=== PATIENT | female | born 1990 | race Caucasian/White ===

== ENCOUNTER 2024-03-24 02:46 | Inpatient (IN) ==
[2024-03-24] MEDS ORDERED: LIDOCAINE 1% LOCAL 20 ML VIAL INFIL PRN (02:59)
--- NOTE | 2024-03-24 03:04 | History & Physical Report ---
Date of Service March 24, 2024 Assessment & Plan (1) Uterine contractions: Plan Admit in active labor History of Present Illness Chief Complaint: labor Primary Care Provider: Renita Tamayo PA-C 33 F P1001 at term here in active labor. GBS is negative. Allergies Allergy/AdvReac Type Severity Reaction Status Date / Time amoxicillin Allergy Intermediate RASH A Verified 03/04/24 15:31 CHILD prednisone Allergy Mild Rash Verified 03/04/24 15:31 Home Medications Medication Instructions Recorded Confirmed Type bupropion HCl 100 mg tablet,12 hr 100 mg PO DAILY 02/25/24 03/24/24 History sustained-release vits no.124-ferrous fum 1 tab PO DAILY 03/04/24 03/24/24 History 27 mg iron-folic acid 800 mcg tablet ( Vitamin) Patient History Medical History (Updated 03/24/24 @ 03:09 by Zain Parra MD) Anxiety History of supraventricular tachycardia Ablation [facility] [place]- 08/2021. Depression Surgical History [place] teeth extracted H/O cardiac radiofrequency ablation 08/2021 Family History Grandfather (Maternal) Myocardial infarction Grandmother (Maternal) Uterine cancer Bladder cancer Denies family history of Ovarian cancer Prostate cancer Breast cancer Colorectal cancer Social History Smoking Status: Never smoker Second Hand Exposure: Yes; Do You Dip or Chew Tobacco: No; Preferred Language: [place] Visual Impairment: No Limitations Hearing Ability: Normal Apartment Hotel Manager Required: No Beliefs That Will Affect Care: None Current Living Situation: Significant Other and Other Current Living Situation Comment: almost 3 yo daughter and significant other current occupational status: employed current occupation: planning manager How many Children do You have: 1 Diet: regular Diet Comment: regular caffeine: Yes during the past year weight has: decreased > 10 lbs Dental Care, Regularly: Yes Physical Activity Frequency: Daily Seatbelt Use: always Sunscreen Use: Yes Assistive Devices: Contacts OB History x1 ENERGY ATTORNEY History neg Review of Systems All systems reviewed & are unremarkable except as noted in HPI & below Physical Exam Constitutional: WD/WN, vitals as above Eyes: PERRL, conjunctivae normal, anicteric sclerae Respiratory: normal respiratory effort, lungs clear to auscultation Cardiovascular: Rate/Rhythm: regular rate and regular rhythm Gastrointestinal (Abdomen): Inspection/Auscultation: abdomen normal to inspection Musculoskeletal: Extremities: extremities normal to inspection Skin: no rashes, warm and dry Neurologic: patellar DTR's 2+ bilat, sensation intact Psychiatric: A+Ox3, euthymic affect Results & Data Vital Signs (Past 12 Hours) Vital Signs Pulse BP 03/24/24 02:57 93 H 130/88 Code Status & VTE Plan VTE Prophylaxis Plan VTE Prophylaxis will be ordered: No Monitoring External Monitor Cat 1
[2024-03-24] MEDS: LACTATED RINGER'S 1,000 ML IV PRN (03:05)
[2024-03-24 03:27] LABS: Hematocrit (blood only) 33.8 % (37.0-47.0); Hemoglobin 11.5 g/dl (12.0-16.0); Mean Corpuscular Volume 85.4 fL (80.0-100.0); Mean Platelet Volume 11.2 fL (9.4-12.4); Platelet Count 209 K/uL (130-400); RDW Coefficient of Variation 14.5 % (11.5-14.5); RDW Standard Deviation 44.7 fL (36.4-46.3); Red Blood Count 3.96 M/uL (4.20-5.40); White Blood Count 11.89 K/ul (4.8-10.8)
[2024-03-24] MEDS ORDERED: LIDOCAINE 2% MPF LOCAL 5 ML VIAL EPI PRN (03:30)
[2024-03-24] MEDS ORDERED: NALOXONE HCL 0.4 MG/1 ML VIAL/CARP IV PRN (03:30)
[2024-03-24] MEDS ORDERED: SODIUM CHLORIDE 0.9% PF INJ 10 ML VIAL EPI PRN (03:30)
[2024-03-24] MEDS ORDERED: diphenhydrAMINE 50 MG/ML VIAL IV PRN (03:30)
[2024-03-24] MEDS ORDERED: ePHEDrine sulfate 50 MG/ML AMP IV PRN (03:30)
[2024-03-24] MEDS ORDERED: ROPIVACAINE 0.5% PF 5 MG/ML 20 ML VIAL EPI PRN (03:30)
[2024-03-24] MEDS ORDERED: BUPIVACAINE 0.25% PF 30 ML VIAL EPI PRN (03:30)
[2024-03-24] MEDS ORDERED: NALBUPHINE HCL 5 MG in SYRINGE 0 ML IV PRN (03:30)
[2024-03-24] MEDS ORDERED: NALOXONE HCL 1 MG in SODIUM CHLORIDE 0.9% 1,000 ML IV PRN (03:30)
[2024-03-24] MEDS ORDERED: fentaNYL citrate PF 100 MCG/2 ML VIAL EPI PRN (03:30)
--- NOTE | 2024-03-24 03:30 | Anesthesiology Consultation ---
Date of Service March 24, 2024 Assessment & Plan Chart Review Chart Review: Acceptable Risk for Labor Epidural Consults Requested none History Height/Weight Height: 5 ft 7 in Weight: 89.3 kg Allergies Allergy/AdvReac Type Severity Reaction Status Date / Time amoxicillin Allergy Intermediate RASH A Verified 03/04/24 15:31 CHILD prednisone Allergy Mild Rash Verified 03/04/24 15:31 Medications Home Medications Medication Instructions Recorded Confirmed Last Taken bupropion HCl 100 mg tablet,12 hr 100 mg PO DAILY 02/25/24 03/24/24 3 Days Ago sustained-release ~03/21/24 vits no.124-ferrous fum 1 tab PO DAILY 03/04/24 03/24/24 1 Day Ago 27 mg iron-folic acid 800 mcg ~03/23/24 tablet ( Vitamin) Active Medications Generic Name Dose Route Start Last Admin Trade Name Freq PRN Reason Stop Dose Admin Lactated Ringer's 1,000 mls @ 125 mls/hr 03/24/24 02:59 03/24/24 03:05 Lr IV 03/26/24 02:58 999 mls/hr .Q8H PRN Administration L&D Protocol Protocol Past Medical History Medical History (Updated 03/24/24 @ 03:09 by Zain Parra MD) Anxiety History of supraventricular tachycardia Ablation [facility] [place]- 08/2021. Depression Past Family History Family History Grandfather (Maternal) Myocardial infarction Grandmother (Maternal) Uterine cancer Bladder cancer Denies family history of Ovarian cancer Prostate cancer Breast cancer Colorectal cancer Past Surgical History Surgical History [place] teeth extracted H/O cardiac radiofrequency ablation 08/2021 Social History Smoking Status: Never smoker Do You Dip or Chew Tobacco: No Hx Alcohol Use: No Hx Substance Use: No substance use type: does not use Physical Exam Vital Signs Last Vital Signs Temp 36.7 C 03/24/24 03:08 Pulse 93 H 03/24/24 02:57 Resp 16 03/24/24 03:08 BP 130/88 03/24/24 02:57 Constitutional WD/WN, vitals as above Eyes PERRL, conjunctivae normal, anicteric sclerae Respiratory normal respiratory effort, lungs clear to auscultation Cardiovascular Rate/Rhythm: regular rate and regular rhythm Gastrointestinal (Abdomen) Inspection/Auscultation: abdomen normal to inspection Musculoskeletal Extremities: extremities normal to inspection Skin no rashes, warm and dry Neurologic patellar DTR's 2+ bilat, sensation intact Psychiatric A+Ox3, euthymic affect Testing Laboratory Results 03/24/24 03:14
[2024-03-24] MEDS: LIDOCAINE 2%/EPINEPHRINE 1:200,000 20 ML PF ONE (03:44)
[2024-03-24] MEDS: fentANYL 2 MCG/ML BUPIVacaine 0.125%-NSS 100ML BAG EPI PRN (03:44)
[2024-03-24] MEDS: BUPIVACAINE 0.25% PF 30 ML VIAL EPI STA (04:50)
[2024-03-24] MEDS: fentaNYL citrate PF 100 MCG/2 ML VIAL EPI STA (04:50)
[2024-03-24] MEDS: SODIUM CHLORIDE 0.9% PF INJ 10 ML VIAL EPI STA (04:51)
[2024-03-24] MEDS: fentANYL 2 MCG/ML BUPIVacaine 0.125%-NSS 100ML BAG ONE (04:51)
[2024-03-24] MEDS: ePHEDrine sulfate 50 MG/ML AMP ONE (04:51)
[2024-03-24] MEDS: SODIUM CHLORIDE 0.9% PF INJ 10 ML VIAL ONE (04:51)
[2024-03-24] MEDS: BUPIVACAINE 0.25% PF 30 ML VIAL ONE (04:51)
[2024-03-24] MEDS: LIDOCAINE 2%/EPINEPHRINE 1:200,000 20 ML PF EPI STA (04:52)
[2024-03-24] MEDS: ONDANSETRON INJ 2 MG/ML 2 ML VIAL IV PRN (04:54)
[2024-03-24] MEDS: CALCIUM CARBONATE 500 MG CHEWABLE TAB PO PRN (05:19)
--- NOTE | 2024-03-24 05:35 | Labor Progress Brief Note ---
Date of Service March 24, 2024 Assessment & Plan Admission and Anticipated Discharge Date Admission Date: March 24, 2024 Physical Exam Genitourinary: Manual OB Exam: + cervical dilation 10 cm, + cervical effacement 100%, + station 0 and + amniotic fluid clear OB Exam Monitor Tracing: + external FHT monitor used, + external uterine monitor used, + category I and + normal FHT variability AROM with Amni-hook clear fluid Results & Data Vital Signs (Past 12 Hours) Vital Signs Temp Pulse Resp BP Pulse Ox 03/24/24 05:30 93 H 99 03/24/24 05:25 87 98 03/24/24 05:22 75 102/54 L 03/24/24 05:20 76 98 03/24/24 05:15 80 98 03/24/24 05:10 81 96 03/24/24 05:08 75 94/50 L 03/24/24 05:05 83 98 03/24/24 05:00 77 16 97 03/24/24 04:55 106 H 100 03/24/24 04:53 105 H 102/58 L 03/24/24 04:50 121 H 99 03/24/24 04:45 85 97 03/24/24 04:40 94 H 98 03/24/24 04:37 71 108/73 03/24/24 04:35 92 H 96 03/24/24 04:32 85 94/66 L 03/24/24 04:30 96 H 16 98 03/24/24 04:26 96 H 104/59 L 03/24/24 04:25 105 H 99 03/24/24 04:22 97 H 115/68 03/24/24 04:20 101 H 98 03/24/24 04:17 96 H 111/66 03/24/24 04:15 92 H 98 03/24/24 04:12 93 H 121/77 03/24/24 04:10 96 H 97 03/24/24 04:06 93 H 104/51 L 03/24/24 04:05 87 98 03/24/24 04:00 16 03/24/24 04:00 16 03/24/24 04:00 99 03/24/24 04:00 81 03/24/24 04:00 91 H 117/66 03/24/24 03:58 96 H 114/69 03/24/24 03:56 89 110/60 03/24/24 03:55 86 16 97 03/24/24 03:54 81 110/61 03/24/24 03:52 88 111/71 03/24/24 03:50 80 98 03/24/24 03:49 113 H 108/78 03/24/24 03:45 91 H 98 03/24/24 03:40 80 98 03/24/24 03:08 36.7 C 16 03/24/24 02:57 93 H 130/88
[2024-03-24] MEDS: OXYTOCIN 30 UNITS/NSS 30 UNITS/500 ML BAG IV PRN (06:00)
--- NOTE | 2024-03-24 06:16 | Delivery Summary ---
Vaginal Delivery Summary Date of Service March 24, 2024 Vaginal Delivery Summary live female KOLBY with delayed cord clamping and Apgars 8/8 weight pending. Cord blood obtained followed by spontaneous delivery of intact placenta. Small tear in vagina noted in midline about 3-4 mm. not bleeding and not repaired. QBL 206 ml. Final sponge and instrument count are correct. Mom and baby stable.
[2024-03-24] MEDS ORDERED: BENZOCAINE 20% SPRY 85 APPLN/85 GM CAN EXT PRN (06:18)
[2024-03-24] MEDS ORDERED: HYDROCORTISONE ACETATE 25 MG SUPP PR PRN (06:18)
[2024-03-24] MEDS ORDERED: OXYTOCIN 30 UNITS/NSS 30 UNITS/500 ML BAG IV PRN (06:18)
[2024-03-24] MEDS ORDERED: bisacodyL 10 MG SUPP PR PRN (06:18)
[2024-03-24] MEDS: DOCUSATE SODIUM 100 MG CAP PO SCH (08:25)
[2024-03-24] MEDS: PRENATAL VITAMIN 1 TAB PO SCH (08:25)
[2024-03-24] MEDS: buPROPion SR 100 MG TABCR PO SCH (08:26)
[2024-03-24] MEDS: FERROUS SULFATE 325 MG TAB PO SCH (08:26)
--- NOTE | 2024-03-24 08:43 | Anesthesia Procedure Note ---
Date of Service March 24, 2024 Anesthesia Post Epidural Note Vital Signs Vital Signs: Temp Pulse Resp BP Pulse Ox 36.8 C 90 18 106/66 97 03/24/24 06:20 03/24/24 08:28 03/24/24 07:05 03/24/24 08:28 03/24/24 06:05 Pain Intensity Abdomen: Pain Intensity: 0 Notes Mental Status: alert / awake / arousable and participated in evaluation Nausea / Vomiting: adequately controlled Pain: adequately controlled Airway Patency, RR, SpO2: stable & adequate BP & HR: stable & adequate Hydration State: stable & adequate Neuraxial Anesthesia: was administered and sensory block is resolving Anesthetic Complications: no major complications apparent Epidural: Removed without complications and With tip intact
[2024-03-24] MEDS ORDERED: PRENATAL VITAMIN 1 TAB PO SCH (09:00)
[2024-03-24] MEDS: IBUPROFEN 600 MG TAB PO PRN (09:19)
[2024-03-24] MEDS: ACETAMINOPHEN 325 MG TAB PO PRN (10:07)
[2024-03-24] MEDS: DIPHTHER/TETAN/PERTUS Vaccine (Tdap, Adol/Adult) 0.5mL IM ONE (10:35)
--- OUTSIDE RECORDS SUMMARY | 2024-03-24 12:04 | External Medical Summary | Summary of Care ---
Author Name Unknown Organization [facility] Address [address] [place] [address] Phone [phone] Care Team Providers Care Jd Edwards Developer Name Role Phone Shiloh Leger Primary Care Provider [phone] Encounter Details Date Type Department Care Team (Late st Contact Info) Description 03/17/2024 [facility] [address] [place] [address] Adia Baig CRNP [address] [facility] [place] [address] Allergies Active Allergy Reactions Criticality Noted Date Comments Amoxicillin 12/05/2005 Prednisone 10/01/2022 Other reaction(s): hives documented as of this encounter (statuses as of 03/17/2024) Medications Medication Sig Dispensed Refills Start Date End Date Status Forte Oral Tablet Take by mouth. Active buPROPion HCl ER (XL) 150 MG Oral Tablet Extended Release 24 Hour (Wellbutrin XL)Indications:Encount er for supervision of other normal in first trimester,Depression complicating , antepartum Take 1 Tablet by mouth in the morning. 30 Tablet 6 08/06/2023 Active Fish Oil 1000 MG Oral Capsule Take 1 Capsule by mouth in the morning. Active Ondansetron HCl 4 MG Oral Tablet (Zofran) 03/04/2024 Acti ve Polyethylene Glycol 3350 17 GM Oral Packet (MiraLax) Take 1 Packet by mouth in the morning. Active documented as of this encounter (statuses as of 03/17/2024) Active Problems Problem Noted Date Diagnosed Date Iron deficiency anemia 01/21/2024 Antepartum anemia complicating 024 Overview: Anemia at 28w, recommend IV iron High grade squamous intraepi thelial lesion (HGSIL), grade 3 ROGERIO, on biopsy of cervix 10/13/2023 Overview: Needs PP LEEP Maternal arrhythmia affecting , antepar blaise 09/29/2023 Overview: Hx SVT, s/p ablation in 2021. Follows with cardiology at [facility]. Reports she had an echo ~2 years ago and it was normal. Has had one short episode of SVT since ablation, but no issues since that time. Sees cardiology in November. Last Assessment & Plan: She presents for a anatomy survey. She has a history of SVT s/p ablation not requiring pharmacologic treatment and depression managed with Wellbutrin. She reports no recent episodes of SVT. She is not feeling well with some cold- like symptoms and has noted a higher baseline heart rate (mild tachycardia) in association with this over the last 2 days, but denies feeling otherwise symptomatic from a cardiac perspective. Labs reviewed: -- cffDNA low risk for aneuploidy -- msAFP low risk for ONTD We reviewed the results of today's ultrasound. The estimated weight is appropriate for gestational age. The visualized anatomy is unremarkable in appearance. The amniotic fluid amount appears normal. We discussed that ultrasound is not able to identify all anomalies, but it is reassuring that no anomalies were seen today. 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 States Solano was tested and he is not a carrier. She has previously received counseling. No labs available for review. Last Assessment & Plan: Discussion: -Spinal Muscular Atrophy (SMA) is an autosomal recessive neuromuscular disease characterized by degeneration of motor neurons, resulting in progressive muscular atrophy (wasting away) and weakness. The clinical spectrum of SMA ranges from early infant to normal adult life with only mild weakness. Recommendations: -Discussed 50% chance the gene is passed on to her . -Not at risk for development as she reports her partner is negative. Pap smear of cervix with ASCUS, cannot exclude H GSIL 08/13/2023 Encounter for supervision of other normal , unspecified trimester 08/06/2023 History of cardiac radiofrequency ablation 08/06 Overview: Cardiac ablation after last for persistent SVT. Depression complicating , antepartum Overview: Taking wellbutrin, mood stable. Denies SI/HI. Last Assessment & Plan: DISCUSSION: 1. Discussed with patient that depression can and should be treated during when the benefits of treatment outweigh potential risks. Risks of leaving maternal depression untreated or inadequately treated are maternal suicide/homicide, an increased risk of depression/psychosis, relapse during and impaired maternal-child bonding. Risks of untreated mental illness pose additional risks in , such as miscarriage, low weight, and delivery. 2. Discussed that although there have been reports in the past regarding anti-depressant therapy and abnormalities or complications, research has not confirmed or supported this claim. Studies of first-trimester SSRI exposure do not demonstrate consistent data to support an increased risk for structural malformations, however, echocardiogram is indicated at this time for patients who were treated with paroxetine (Paxil) in the first trimester. 3. Anti-depressants have been associated with transient effects (withdrawal syndrome). RECOMMENDATIONS: 1. Women who are stable from a psychiatric standpoint may be able to stay on their medication after consultation between their mental health provider and their obstetric provider. However, for most women, accessible and acceptable mental health treatment may be very limited. 2. Women who would like to discontinue their medication may attempt medication tapering and discontinuation under the direction of their prescribing physician. 3. Women who have recurrent depression or who have depression despite medication may benefit from psychotherapy to replace or augment medication. 4. Women with severe depression should continue their medication. 5. Alternative treatments such as light therapy, acupuncture treatment and omega-3 fatty acids may be tried if the patient desires. Wellbutrin - Not associated with increased risk of congenital defects. Antidepressant use (not specific to Wellbutrin) in may cause temporary symptoms in newborns after delivery such as irritability, trouble sleeping/eating, however these symptoms resolve on their own and do not require treatment. 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 No issues since ablation and was discah Estimated Date of Delivery Comme nts Yes 03/28/2024 Based on Ultraso und documented as of this encounter (statuses as of 03/17/2024) Immunizations Name Administration Dates Next Due COVID-19, LNP-s, No Preserve , Jose Miguel-sucrose, Ages 12+ (Pfizer) 05/15/2021,04/23/2021 TDAP (age 10 and older)(Boostrix) 01/02/2024 documented as of this encounter Social History Tobacco Use Types Packs/Day Years Used Date Smoking Tobacco: Never Smokeless Tobacco: Never Alcohol Use Standard Drinks/Week Comments Not Currently 0 (1 standard drink = 0.6 oz pur e alcohol) very rare PHQ-2 Answer Date Recorded PHQ Adult Total Score 0 10/01/2022 Hunger Vital Sign Answer Date Recorded Within the past 12 months, y ou worried that your food would run out before you got the money to buy more. Never true 11/03/19 24 Within the past 12 months, t he food you bought just didn't last and you didn't have money to get more. Never true 11/03/2023 [place] Depression Scale Answer Date Recorded [place] Depression Scale Total 4 02/04/2024 The thought of harming myself has occurred to me . Never 02/04/2024 Childcare Answer Date Recorded Do you feel overwhelmed with taking care of a child, family member or friend? No 11/03/2023 Does your family need help f inding childcare? (Household - for ages 0-17 years) Not on file 11/03/2023 Clothing Answer Date Recorded Have you been unable to get clothing when it was really needed? No 11/03/2023 Is your family able to get c lothes or diapers when needed? (Household - for ages 0-17 years) Not on file 11/03/2023 Personal Safety Answer Date Recorded Do you feel unsafe or have concerns for your saf ety? No 11/03/2023 Do you have concerns for you r family's safety? (Household - for ages 0-17 years) Not on file 11/03/2023 Utilities Answer Date Recorded Do you have trouble paying y our heating, water, or electric bill? No 11/03/2023 Is your family able to pay t he heat, water, or electric bill? (Household - for ages 0-17 years) Not on file 11/03/2023 Does your family have access to good internet? (Household - for ages 0-17 years) Not on file 11/03/2023 Employment Status Answer Date Recorded Are you unemployed or without regular income? No 11/03/2023 Does the household have a [facility] source of income? (Household - for ages 0-17 years) Not on file 11/03/2023 Social Connections Answer Date Recorded How often do you feel lonely or isolated from th ose around you? Never 11/03/2023 Financial Resource Strain Answer Date R ecorded Do you have any trouble payi ng for your medications, or do you think you might in the future? No 11/03/2023 Does your family have troubl e paying for medicine? (Household - for ages 0-17 years) Not on file 11/03/2023 Transportation Needs Answer Date Record ed READ ONLY Do you have troubl e getting a ride to medical visits or work? Never True 11/03/2023 Does your family have a hard time getting a ride to doctors visits? (Household - for ages 0-17 years) Not on file 11/03/2023 Has lack of transportation k ept you from medical appointments, meetings, work, or from getting things needed for daily living? Check all that apply. (Adult - for ages 18 years and over) Not on file 11/03/2023 Do you (or your family) have trouble finding or paying for a ride (transportation)? (Household - for ages 0-17 years) Not on file 11/03/2023 Housing Stability Answer Date Recorded Do you currently live in a s helter or have no steady place to sleep at night? No 11/03/2023 READ ONLY Do you think you a re at risk of becoming homeless? No 11/03/2023 Does your family worry about paying for your home or becoming homeless? (Household - for ages 0-17 years) Not on file 0 11/03/2023 Are you homeless or worried that you might be in the future? (Adult - for ages 18 years and over) Not on file Are you (or your family) xi eless or worried that you might be in the future? (Household - for ages 0-17 years) Not on file Food Insecurity Answer Date Recorded Do you need food for this week? No 11/03/2023 Are you able to get enough f ood for your family? (Household - for ages 0-17 years) Not on file 11/03/2023 Does your family need food t his week? (Household - for ages 0-17 years) Not on file 11/03/2023 Do you always have enough fo od for your family? (Household - for ages 0-17 years) Not on file 11/03/2023 Estimated Date of Delivery Comme nts Yes 03/28/2024 Based on Ultraso und Sex and Gender Information Value Date Recorded Sex Assigned at Female 10/01/2022 8:56 AM EST Gender Identity Female 10/01/2022 8:56 AM EST Sexual Orientation Straight 10/01/2022 8: 56 AM EST Job Start Date Occupation Industry Not on file Not on file Not on file documented as of this encounter Miscellaneous Notes * Telephone Encounter - Radha Ritter LPN - 03/17/2024 9:09 AM EDT Pt had dental abscess pop last night. Was feeling ill for the past week and thinks maybe related. Dentist has no appts and told her to reach out to OB for management. I advised pt to reach out first to PCP and then urgent care if pcp can't help as our providers don't treat dental infections. documented in this encounter Plan of Treatment Upcoming Encounters Date Type Department Care Team (Late st Contact Info) Description 03/17/2024 3:00 PM EDT Office Visit Gynecology/Obstetrics [facility] [address] [place] [id number] Adia Baig CRNP [address] [place] [id number] 03/26/2024 3:30 PM EDT [facility] [address] [place] [address] Karolyn Rodriguez PA-C [address] [place] [address] [place] [id number] Health Maintenance Due Date Last Done Comments Hepatitis B Vaccine (1 of 3 - 19+ 3-dose series) 2010 COVID-19 Vaccine (2022- season) 2023 05/15/2021, 05/15/2021, 04/23/2021, Additional history exists Depression Monitoring 10/01/2023 10/01/2022 Influenza Vaccine (FLU shot) (#1) 2024 Pap Smear 08/06/2026 08/06/2023 Cervical Cancer Screening 08/06/2028 HPV/Co-Test 08/06/2028 08/06/2023 DTaP,Tdap,and Td Vaccines (2 - Td or Tdap) 01/01/2034 01/02/2024 HPV (Gardasil) Vaccine Aged Out No lo nger eligible based on patient's age to complete this topic MENINGOCOCCAL (MENACTRA/MENVEO) Aged Out No longer eligible based on patient's age to complete this topic Pneumococcal Vaccine: Pediatrics (0 to 5 Years) and At-Risk Patients (6 to 64 Years) Aged Out No longer eligible based on patient's age to complete this topic documented as of this encounter Medical Devices Not on filedocumented as of this encounter Care Teams Jd Edwards Developer Relationship Specialty Start Date End Date Shiloh Leger CRNP [address] [place] [address] PCP - General Nurse Practitioner 09/24/22 documented as of this encounter
--- OUTSIDE RECORDS SUMMARY | 2024-03-24 12:04 | External Medical Summary | Summary of Care ---
Author Name Unknown Organization [facility] Address [address] [place] [address] Phone [phone] Care Team Providers Care Charge Aide Name Role Phone Shiloh Leger Primary Care Provider +1- [phone] Reason for Visit * Reason Comments Return Visit Encounter Details Date Type Department Care Team (Latest Contact Info) Description 03/17/2024 3:00 PM EDT Office Visit Gynecology/Obstetri sharyn Han [address] [place] [address] Adia Baig CRNP [address] [place] [address] Encounter for supervision of other normal , unspecified trimester*; History of cardiac radiofrequency ablation; Depression complicating , antepartum; Pap smear of cervix with ASCUS, cannot exclude HGSIL; Maternal arrhythmia affecting , antepartum; Carrier of spinal muscular atrophy; High grade squamous intraepithelial lesion (HGSIL), grade 3 ROGERIO, on biopsy of cervix; Antepartum anemia complicating Allergies Active Allergy Reactions Criticality Noted Date [...] ablation in 2021. Follows with cardiology at [facility]. 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 States Russ was tested and he is not a [...] money to get more. Never true 11/03/2023 [place] Depression Scale Answer Date Recorded [place] Depression Scale Total 4 02/04/2024 The thought [...] No 11/03/2023 Does the household have a re gular source of income? (Household - for ages [...] on file documented as of this encounter Last Filed Vital Signs Vital Sign Reading Time Taken Comments Blood Pressure 110/78 03/17/2024 2:56 PM EDT Pulse - - Temperature - - Respiratory Rate - - Oxygen Saturation - - Inhaled Oxygen Concentration - - Weight 83.8 kg (184 lb 12.8 oz) 03/17/2024 2:56 PM EDT Height - - Body Mass Index 29.83 03/12/2024 3:10 PM EDT documented in this encounter Progress Notes * Adia Baig CRNP - 03/17/2024 3:16 PM EDT 38w3d Abscess on tooth popped last night. Not sure if she needs antibiotics. Advised this will not be managed by this office, as not related to . She is vomiting in the middle of the night. Suggested she try Pepcid in the evening to see if this improves this. Baby is active. Still with contractions, no bleeding. Asking for cervical check today. Wants membrane sweep next week, hoping to avoid IOL. Production Control Pegboard Clerk Documentation Provider requested retort loader. Name of retort loader: EM Sharp documented in this encounter Nursing Notes * Socorro Kan MED ASSIST - 03/17/2024 2:54 PM EDT 38w3d Abscess on front tooth popped at 4:00am. Throwing up every night 3 weeks. Feeling feverish. Requesting cervical check ?membrane sweep documented in this encounter Plan of Treatment Upcoming Encounters Date Type Department Care Team (Late st Contact Info) Description 03/26/2024 3:30 PM EDT Office Visit Gynecology/Obstetrics [facility] 132 [facility] [place] [address] Karolyn Rodriguez PA-C [address] [place] [address] [place] [address] Health Maintenance Due Date Last Done Comments Hepatitis B Vaccine (1 of 3 - 19+ 3-dose series) 2010 COVID-19 Vaccine (2022-24 season) 2023 05/15/2021, 05/15/2021, 04/23/2021, Additional history [...] Not on filedocumented as of this encounter Visit Diagnoses Diagnosis Encounter for supervision of other normal , unspecified trimester- Primary History of cardiac radiofrequency ablation Depression complicating , antepartum Mental disorders of mother, antepartum Pap smear of cervix with ASCUS, cannot exclude HGSIL Papanicolaou smear of cervix with atypical squamous cells of undetermined significance (ASC-US) Maternal arrhythmia affecting , antepartum Carrier of spinal muscular atrophy High grade squamous intraepithelial lesion (HGSIL), grade 3 ROGERIO, on biopsy of cervix Antepartum anemia complicating Anemia, antepartum documented in this encounter Care Teams Charge Aide Relationship Specialty Start Date End Date Shiloh Leger CRNP [address] [facility] [place] [address] PCP - General Nurse Practitioner 09/24/22 documented as of this encounter
--- OUTSIDE RECORDS SUMMARY | 2024-03-24 12:04 | External Medical Summary | Summary of Care ---
Author Name Unknown Organization [facility] Address [address] [facility] [address] Phone [phone] Care Team Providers Care Agriculture Intern Name Role Phone Shiloh Leger Primary Care Provider +1- [phone] Reason for Visit * Reason Comments Return Visit Encounter Details Date Type Department Care Team (Latest Contact Info) Description 03/22/2024 1:00 PM EDT Office Visit Gynecology/Obstetri sharyn Han [address] [place] [address] Gayle Dexter PA-C [address] [place] [address] Encounter for supervision of other normal , unspecified trimester*; History of cardiac radiofrequency ablation; Depression complicating , antepartum; Pap smear of cervix with ASCUS, cannot exclude HGSIL; Maternal arrhythmia affecting , antepartum; Carrier of spinal muscular atrophy; High grade squamous intraepithelial lesion (HGSIL), grade 3 ROGREIO, on biopsy of cervix; Antepartum anemia complicating Allergies Active Allergy Reactions Criticality Noted Date Comments Amoxicillin 12/05/2005 Prednisone 10/01/2022 Other reaction(s): hives documented as of this encounter (statuses as of 03/22/2024) Medications Medication Sig Dispensed Refills Start Date End Date Status Forte Oral Tablet Take by mouth. Active buPROPion HCl ER (XL) 150 MG Oral Tablet Extended Release 24 Hour (Wellbutrin XL)Indications:Encou nter for supervision of other normal in first [...] Packet by mouth in the morning. Active Clindamycin HCl 300 MG Oral Capsule Take 1 Capsule by mouth in the morning and 1 Capsule at noon and 1 Capsule before bedtime. Do all this for 7 days. 21 Capsule 03/18/2024 03/25/2024 Active documented as of this encounter (statuses as of 03/22/2024) Active Problems Problem Noted Date Diagnosed Date Iron deficiency anemia 01/21/2024 Antepartum anemia complicating 024 Overview: Anemia at 28w, recommend IV iron High grade squamous intraepi thelial lesion (HGSIL), grade 3 ROGERIO, on biopsy of cervix 10/13/2023 Overview: Needs PP LEEP Maternal arrhythmia affecting , antepar blaise 09/29/2023 Overview: Hx SVT, s/p ablation in 2021. Follows with cardiology at [facility]. Reports she had an echo ~2 [...] clinical spectrum of SMA ranges from early to normal adult life with only mild [...] as of this encounter (statuses as of 03/22/2024) Immunizations Name Administration Dates Next Due COVID-19, [...] money to get more. Never true 11/03/2023 [place] Depression Scale Answer Date Recorded [place] Depression Scale Total 4 02/04/2024 The thought [...] Sign Reading Time Taken Comments Blood Pressure 118/84 03/22/2024 12:49 PM EDT Pulse - - Temperature - - Respiratory Rate - - Oxygen Saturation - - Inhaled Oxygen Concentration - - Weight 83.9 kg (185 lb) 03/22/2024 12:49 PM EDT Height 167.6 cm (5' 6") 03/22/2024 12:49 PM EDT Body Mass Index 29.86 03/22/2024 12:49 PM EDT documented in this encounter Progress Notes * Gayle Dexter PA-C - 03/22/2024 1:12 PM EDT 39w1d No complaints. Requesting membrane sweep, had 3 times with last . GBS negative. Reports intermittent contractions. Denies LOF, VB. Baby active. FKC appropriate, pt reports 10 kicks in 2 hours. Business Unit Director Documentation Provider requested sheriffs detective. Name of sheriffs detective: HALEY Garcia Asking for return appointment later this week for another membrane sweep -- discussed may be limited based on available appointments. Reviewed postdate IOL, pt agreeable to scheduled. Prefers [id number]. RTC in 1 week Gayle Dexter PA-C documented in this encounter Nursing Notes * Radha Ritter LPN - 03/22/2024 12:59 PM EDT 39w1d Would like membrane sweep. documented in this encounter Plan of Treatment Upcoming Encounters Date Type Department Care Team (Late st Contact Info) Description 03/26/2024 3:30 PM EDT Office Visit Gynecology/Obstetrics [facility] 132 [facility] [place] [address] Karolyn Rodriguez PA-C [address] [place] [address] [place] [address] Health Maintenance Due Date Last Done Comments Hepatitis B Vaccine (1 of 3 - 19+ 3-dose series) 2010 COVID-19 Vaccine (3 - 2022-24 season) 2023 05/15/2021, 05/15/2021, 04/23/2021, Additional history [...] antepartum documented in this encounter Care Teams Agriculture Intern Relationship Specialty Start Date End Date Shiloh Leger CRNP [address] [place] [address] PCP - General Nurse Practitioner 09/24/22 documented as of this encounter
--- OUTSIDE RECORDS SUMMARY | 2024-03-24 12:04 | External Medical Summary | Summary of Care ---
Author Name Unknown Organization [facility] Address [address] [facility] [address] Phone [phone] Care Team Providers Care Crop Adjuster Name Role Phone Shiloh Leger Primary Care Provider +1- [phone] Encounter Details Date Type Department Care Team (Late st Contact Info) Description 03/22/2024 Telephone [facility] [address] [place] [address] Gayle Dexter PA-C [address] [place] [address] Allergies Active Allergy Reactions Criticality Noted Date [...] ablation in 2021. Follows with cardiology at [facility]. Reports she had an echo ~2 years [...] money to get more. Never true 11/03/2023 [place] Depression Scale Answer Date Recorded [place] Depression Scale Total 4 02/04/2024 The thought [...] 11/03/2023 Does the household have a re lar source of income? (Household - for ages [...] on file documented as of this encounter Plan of Treatment Upcoming Encounters Date Type Department Care Team (Late st Contact Info) Description 03/26/2024 3:30 PM EDT Office Visit Gynecology/Obstetrics [facility] 132 [facility] [place] [address] Karolyn Rodriguez PA-C [address] [place] [address] [place] [address] Health Maintenance Due Date Last Done Comments [...] filedocumented as of this encounter Care Teams Crop Adjuster Relationship Specialty Start Date End Date Shiloh Leger CRNP [address] [place] [address] PCP - General Nurse Practitioner 09/24/22 documented as of this encounter
--- OUTSIDE RECORDS SUMMARY | 2024-03-24 12:04 | External Medical Summary | Summary of Care ---
Author Name Unknown Organization [facility] Address [address] [facility] [address] Phone [phone] Care Team Providers Care Industrial Waste Treatment Technician Name Role Phone Shiloh Leger Primary Care Provider +1- [phone] Reason for Visit * Reason Comments Return Visit Encounter Details Date Type Department Care Team (Latest Contact Info) Description 03/22/2024 1:00 PM EDT Office Visit Gynecology/Obstetri sharyn Han [address] [place] [address] Gayle Dexter PA-C [address] [place] [address] Encounter for supervision of other normal , [...] money to get more. Never true 11/03/2023 [place] Depression Scale Answer Date Recorded [place] Depression Scale Total 4 02/04/2024 The thought [...] pt reports 10 kicks in 2 hours. Document Preparation Specialist Documentation Provider requested program arranger. Name of program arranger: HALEY Garcia Asking for return appointment later this week for another membrane sweep -- discussed may be limited based on available appointments. Reviewed postdate IOL, pt agreeable to scheduled. Prefers [id number]. RTC in 1 week Gayle Dexter PA-C documented in this encounter Nursing Notes * Radha Ritter LPN - 03/22/2024 12:59 PM EDT 39w1d Would like membrane sweep. documented in this encounter Plan of Treatment Upcoming Encounters Date Type Department Care Team (Late st Contact Info) Description 03/26/2024 3:30 PM EDT Office Visit Gynecology/Obstetrics [facility] 132 [facility] [place] [address] Karolyn Rodriguez PA-C [address] [place] [address] [place] [address] Health Maintenance Due Date [...] antepartum documented in this encounter Care Teams Industrial Waste Treatment Technician Relationship Specialty Start Date End Date Shiloh Leger CRNP [address] [place] [address] PCP - General Nurse Practitioner 09/24/22 documented as of this encounter
--- OUTSIDE RECORDS SUMMARY | 2024-03-24 12:05 | External Medical Summary | Summary of Care ---
Author Name Unknown Organization [facility] Address [address] [facility] [place] [address] Phone [phone] Care Team Providers Care Emergency Department Clinician Name Role Phone Shiloh Leger Primary Care Provider +1- [phone] Reason for Visit * Reason Comments Return Visit Encounter Details Date Type Department Care Team (Late st Contact Info) Description 03/12/2024 3:30 PM EDT Office Visit Gynecology/Obstetri [facility] 132 [facility] [place] [address] Karolyn Rodriguez PA-C [address] [place] [address] Encounter for supervision of other normal , unspecified trimester*; Antepartum anemia complicating ; Iron deficiency anemia, unspecified iron deficiency anemia type; History of cardiac radiofrequency ablation; Maternal arrhythmia affecting , antepartum; High grade squamous intraepithelial lesion (HGSIL), grade 3 ROGERIO, on biopsy of cervix; Depression complicating , antepartum; Carrier of spinal muscular atrophy; Vaginal discharge during in third trimester Allergies Active Allergy Reactions Criticality Noted Date Comments Amoxicillin 12/05/2005 Prednisone 10/01/2022 Other reaction(s): hives documented as of this encounter (statuses as of 03/15/2024) Medications Medication Sig Dispensed Refills Start Date [...] as of this encounter (statuses as of 03/15/2024) Active Problems Problem Noted Date Diagnosed Date Iron deficiency anemia 01/21/2024 Antepartum anemia complicating 024 Overview: Anemia at 28w, recommend IV iron High grade squamous intraepi thelial lesion (HGSIL), grade 3 ROGERIO, on biopsy of cervix 10/13/2023 Overview: Needs PP LEEP Maternal arrhythmia affecting , antepar blaise 09/29/2023 Overview: Hx SVT, s/p ablation in 2021. Follows with cardiology at [facility]. Reports she had an echo ~2 [...] as of this encounter (statuses as of 03/15/2024) Immunizations Name Administration Dates Next Due COVID-19, [...] money to get more. Never true 11/03/2023 [place] Depression Scale Answer Date Recorded [place] Depression Scale Total 4 02/04/2024 The thought [...] Sign Reading Time Taken Comments Blood Pressure 110/82 03/12/2024 3:10 PM EDT Pulse - - Temperature - - Respiratory Rate - - Oxygen Saturation - - Inhaled Oxygen Concentration - - Weight 83.9 kg (185 lb) 03/12/2024 3:10 PM EDT Height 167.6 cm (5' 6") 03/12/2024 3:10 PM EDT Body Mass Index 29.86 03/12/2024 3:10 PM EDT documented in this encounter Progress Notes * Karolyn Rodriguez PA-C - 03/12/2024 3:36 PM EDT Thelma Cooper is a 33 year old female here for her routine OB appointment at 37w5d Her Estimated Date of Delivery: 03/28/24 2 days ago and yesterday noted gushing of fluid that soaked her underwear. She has also had some intermittent BH contractions that have not been timeable or regular. She has been experiencing continued nausea and vomiting. Has been using Zofran which helps. REVIEW OF SYSTEMS She affirms movement. Denies vaginal bleeding, contractions, chest pain, RUQ pain. PHYSICAL EXAM Filed Vitals: 03/12/24 1510 BP: 110/82 Weight: 83.9 kg (185 lb) Height: 1.676 m (5' 6") +FHT 160s-170s. Patient actively may during auscultation with doppler. Remains low 160s. Put on NST for further monitoring for tachycardia. Fundal height 38 cm Nitrazine negative. No pooling. CE: 3cm/40%/-2 Medical Anthropologist Documentation Patient offered radiology aide and accepted. Name of radiology aide: Radha Jones LPN. ASSESSMENT assessment with Non-stress Test completed on 03/12/2024 at 37w5d weeks gestation for indicationof tachycardia heart baseline: 140 bpm Variability: Moderate Decelerations: absent. Accelerations: present Contractions: None NST start time: 1552 NST stop time: 1629 NST strip reviewed, interpreted, and approved by OB provider, Karolyn Rodriguez PA-C. NST strip stored in clinic storage file Reviewed strip with on-call provider Dr. Yeager. Per Dr. Yeager, NST is reactive and patient is able to safely D/C to home with strict precautions. To call with regular contractions every 4-5 minutes for an hour, increasing in frequency or intensity. ASSESSMENT/PLAN Encounter for supervision of other normal , unspecified trimester (Primary) Antepartum anemia complicating Iron deficiency anemia, unspecified iron deficiency anemia type History of cardiac radiofrequency ablation Maternal arrhythmia affecting , antepartum High grade squamous intraepithelial lesion (HGSIL), grade 3 ROGERIO, on biopsy of cervix Depression complicating , antepartum Carrier of spinal muscular atrophy Vaginal discharge during in third trimester - VAGINOSIS PANEL, PCR; Future; Expected date: 03/12/2024 Supervision of - strict labor precautions and kick counts reviewed. Gave L&D phone numbers. RTO in 1 week Karolyn Rodriguez PA-C 03/12/2024 documented in this encounter Nursing Notes * Radha Ritter LPN - 03/12/2024 3:18 PM EDT 37w5d ?LOF x 2. Swelling. documented in this encounter Miscellaneous Notes * Result Encounter Note - Karolyn Rodriguez PA-C - 03/15/2024 7:58 AM EDT Please inform patient her recent vaginosis culture was negative for infection. No treatment is indicated at this time. Thanks! Karolyn Rodriguez PA-C documented in this encounter Plan of Treatment Upcoming Encounters Date Type Department Care Team (Late st Contact Info) Description 03/15/2024 9:30 AM EDT Pharmacy Pharmacy, [place] [address] [place] [address] Clinic, Anemia [address] [place] [address] 03/17/2024 3:00 PM EDT Office Visit Gynecology/Obstetrics [address] [place] [address] Adia Baig CRNP [address] [place] [address] 03/26/2024 3:30 PM EDT Office Visit Gynecology/Obstetrics Iris Han [address] [place] [address] Karolyn Rodriguez PA-C [address] [place], [place] [address] [address] Health Maintenance Due Date Last Done Comments [...] Not on filedocumented as of this encounter Procedures Procedure Name Priority Date/Time Associated Diagnosis Comments VAGINOSIS PANEL, PCR Routine 03/12/2024 4:07 PM EDT Vaginal discharge during in third trimester documented in this encounter Results * VAGINOSIS PANEL, PCR (03/12/2024 4:07 PM EDT) Bacterial Vaginosis Result Negative Negative 03/13/2024 12:07 PM EDT [facility] Comment:Negative for Bacteri al Vaginosis. Correlate results with other clinical findings. Yadira species Result Negative Negative 03/13/2024 12:07 PM EDT [facility] Comment:No Yadira species g roup RNA detected. Correlate results with other clinical findings. Yadira glabrata Result Negative Negative 03/13/2024 12:07 PM EDT [facility] Comment:No Yadira glabrata RNA detected. Correlate results with other clinical findings. Trichomonas Result Negative Negative 03/13/2024 12:07 PM EDT [facility] Comment:No Trichomonas vagin az[place] RNA detected. Swab Specimen from wound / Unknown 03/12/2024 4:07 PM EDT 03/12/2024 4:07 PM EDT Karolyn Rodriguez PA-C LAB MICRO - GENERAL ORDERABLES LABORATORY [facility] [address] [place] [address] documented in this encounter Visit Diagnoses Diagnosis Encounter for supervision of other normal , unspecified trimester- Primary Antepartum anemia complicating Anemia, antepartum Iron deficiency anemia, unspecified iron deficiency anemia type History of cardiac radiofrequency ablation Maternal arrhythmia affecting , antepartum High grade squamous intraepithelial lesion (HGSIL), grade 3 ROGERIO, on biopsy of cervix Depression complicating , antepartum Mental disorders of mother, antepartum Carrier of spinal muscular atrophy Vaginal discharge during in third trimester documented in this encounter Care Teams Emergency Department Clinician Relationship Specialty Start Date End Date Shiloh Leger CRNP [address] [facility] [place] [address] PCP - General Nurse Practitioner 09/24/22 documented as of this encounter
--- OUTSIDE RECORDS SUMMARY | 2024-03-24 12:05 | External Medical Summary | Summary of Care ---
Author Name Unknown Organization [facility] Address [address] [place] [address] Phone [phone] Care Team Providers Care Survey Research Analyst Name Role Phone Shiloh Leger Primary Care Provider +1- [phone] Encounter Details Date Type Department Care Team (Late st Contact Info) Description 03/04/2024 Result Scan Unspecified Department <No scans attached> Allergies Active Allergy Reactions Criticality Noted Date Comments Amoxicillin 12/05/2005 Prednisone 10/01/2022 Other reaction(s): hives documented as of this encounter (statuses as of 03/08/2024) Medications Medication Sig Dispensed Refills Start Date [...] Capsule by mouth in the morning. Active documented as of this encounter (statuses as of 03/08/2024) Active Problems Problem Noted Date Diagnosed Date [...] as of this encounter (statuses as of 03/08/2024) Immunizations Name Administration Dates Next Due COVID-19, [...] money to get more. Never true 11/03/2023 [place] Depression Scale Answer Date Recorded [place] Depression Scale Total 4 02/04/2024 The thought [...] Team (Late st Contact Info) Description 03/12/2024 3:00 PM EDT Laboratory Laboratory, [facility] [address] [place] [id number] [facility] [address] [place] [address] 03/12/2024 3:30 PM EDT [facility] [address] [address] Karolyn Rodriguez PA-C [address] [place] [address] [place] [address] 03/15/2024 9:30 AM EDT Pharmacy Pharmacy, [place] [address] [facility] [address] [facility] [address] [place] [address] 03/19/2024 2:45 PM EDT Office Visit Gynecology/Obstetrics [facility] [address] [facility] [place] [address] Adia Baig CRNP [address] [place] [address] 03/26/2024 3:30 PM EDT Office Visit Gynecology/Obstetrics [facility] [address] [place] [address] Karolyn Rodriguez PA-C [address] [facility] [place] [address] Health Maintenance Due Date [...] Procedure Name Priority Date/Time Associated Diagnosis Comments OUTSIDE LAB RESULTS 03/04/2024 documented in this encounter Results * OUTSIDE LAB RESULTS (03/04/2024) 03/04/2024 No Physician Data Unknown LABORATORY documented in this encounter Care Teams Survey Research Analyst Relationship Specialty Start Date End Date Shiloh Leger CRNP [address] [place] [address] PCP - General Nurse Practitioner 09/24/22 documented as of this encounter
--- OUTSIDE RECORDS SUMMARY | 2024-03-24 12:05 | External Medical Summary ---
Author Name Unknown Address Unknown Organization K01:[facility] - [address] [place] [address] Laboratory Report Ordering Provider Test Date Status TAZ CLEMENS 03/12/2024 15:05:45 Final Observation Date Value Abnormality Reference (Units ) Status Ferritin 03/12/2024 15:05:45 217 Above high normal 13 -150 (ng/mL) Final Performing Location [facility] - [address] [place] [address]
--- OUTSIDE RECORDS SUMMARY | 2024-03-24 12:05 | External Medical Summary | Summary of Care ---
Author Name Unknown Organization [facility] Address [address] [place] [address] Phone [phone] Care Team Providers Care Mathematics Teacher Name Role Phone Shiloh Leger Primary Care Provider +1- [phone] Reason for Visit * Reason Comments IV Therapy Infed Encounter Details Date Type Department Care Team (Latest Contact Info) Description 02/12/2024 8:00 AM EDT Hem/Onc Treatment Hematology/Oncology Treatment, [address] [address] Jacy, Chair 1 Hem Onc [address] [id number] Iron deficiency anemia, unspecified iron deficiency anemia type* Allergies Active Allergy Reactions Criticality Noted Date Comments Amoxicillin 12/05/2005 Prednisone 10/01/2022 Other reaction(s): hives documented as of this encounter (statuses as of 03/10/2024) Medications Medication Sig Dispensed Refills Start Date [...] as of this encounter (statuses as of 03/10/2024) Active Problems Problem Noted Date Diagnosed Date Iron deficiency anemia 01/21/2024 Antepartum anemia complicating 024 Overview: Anemia at 28w, recommend IV iron High grade squamous intraepi thelial lesion (HGSIL), grade 3 ROGERIO, on biopsy of cervix 10/13/2023 Overview: Needs PP LEEP Maternal arrhythmia affecting , antepar blaise 09/29/2023 Overview: Hx SVT, s/p ablation in 2021. Follows with cardiology at [facility]. Reports she had an echo ~2 [...] as of this encounter (statuses as of 03/10/2024) Immunizations Name Administration Dates Next Due COVID-19, [...] money to get more. Never true 11/03/2023 Jber Depression Scale Answer Date Recorded Jber Depression Scale Total 4 02/04/2024 The thought [...] Sign Reading Time Taken Comments Blood Pressure 105/68 02/12/2024 10:30 AM EDT Pulse 86 02/12/2024 10:30 AM EDT Temperature 36.8 C (98.2 F) 02/12/2024 9:25 AM ED T Respiratory Rate 16 02/12/2024 9:25 AM EDT Oxygen Saturation 96% 02/12/2024 9:25 AM EDT Inhaled Oxygen Concentration - - Weight - - Height - - Body Mass Index - - documented in this encounter Nursing Notes * Sintia Mays, RN - 02/12/2024 11:30 AM EDT Pt completed treatment without issues. IV removed. Goals: pt will remain free from injury. Possible barriers to meeting goals: risk of reaction, ambulation with IV pole Stability of the patient: Moderately stable - low risk of patient condition declining or worsening Summary regarding today's goals: Met: Pt Pt remained free from injury during treatment today. Discharged in stable condition. * Sintia Mays RN - 02/12/2024 8:35 AM EDT Chair 8, Infed. Pt has no acute concerns to report today. Reviewed medication and infusion process with pt; pt verbalized understanding. PIV established; NSS infusing. Call goodwin within reach. Safety and Risk for Injury Patient will remain free from injury. Ensure appropriate safety devices are available. Provide and maintain safe environment. documented in this encounter Plan of Treatment Upcoming Encounters Date Type Department Care Team (Late st Contact Info) Description 03/12/2024 3:00 PM EDT Laboratory Laboratory, [facility] [address] [facility] [place] [address] [facility] [place] [address] 03/12/2024 3:30 PM EDT Office Visit Gynecology/Obstetrics [facility] [address] [place] [address] Karolyn Rodriguez PA-C [address] [place], [place] [address] [address] 03/15/2024 9:30 AM EDT Pharmacy Pharmacy, [place] [address] [place] [address] Clinic, [place] [address] [place] [address] 03/19/2024 2:45 PM EDT [facility] [address] [place] [address] Adia Baig CRNP [address] [place] [address] 03/26/2024 3:30 PM EDT Office Visit Gynecology/Obstetrics [facility] [place] [address] [place] [address] Karolyn Rodriguez PA-C [address] [place] [address] [place] [address] Scheduled Orders Name Type Priority Associated Diagnoses Orde r Schedule IRON SCREEN, INCLUDING TIBC Lab STAT Iron deficiency anemia, unspecified iron deficiency anemia type Expected: 02/12/2024 (Approximate), Expires: 08/10/2024 CBC WITH WBC DIFFERENTIAL Lab STAT Iron deficiency anemia, unspecified iron deficiency anemia type Expected: 02/12/2024 (Approximate), Expires: 08/10/2024 FERRITIN Lab STAT Iron deficiency anemia, unspecified iron deficiency anemia type Expected: 02/12/2024 (Approximate), Expires: 02/11/2025 Health Maintenance Due Date Last Done Comments [...] as of this encounter Visit Diagnoses Diagnosis Iron deficiency anemia, unspecified iron deficiency anemia type- Primary documented in this encounter Administered Medications Inactive Administered Medications - up to 3 most recent administrations Medication Order MAR Action Action Date Dose Rate Site Iron Dextran (Infed) 975 mg in NSS 250 mL INFUSION 975 mg, IV Piggyback, ONCE, 1 dose, On Carrie 02/12/24 at 0945, Administer over 1 Hours, - Administer iron dextran infusion bag (over 1 hour) - Monitor for infusion reaction with vitals and observe for reactions at 30 minutes and 60 minutes - If patient develops sign/symptoms of reaction or vital signs outside normal limits: 1) STOP infusion 2) CONTACT physician Start Infusion 02/12/2024 9:33 AM EDT 975 mg 274.5 mL/hr Iron Dextran (Infed) IV Push TEST DOSE 25 mg IV Push, Administer over 0.5 Minutes, Educate patient on sign/symptoms of infusion reaction -Administer 25 mg test dose of iron dextran before infusion bag -Observe patient for sign/symptoms of reaction with vitals sign before test dose and 15 minutes after -If patient tolerates test dose with no reaction, proceed with iron dextran infusion -HOLD infusion and contact physician immediately if patient reacts to test dose, ONCE, 1 dose, On Carrie 02/12/24 at 0930 Given 02/12/2024 8:24 AM EDT 25 mg NSS infusion Intravenous, at 50 mL/hr, PRN, Starting on Carrie 02/12/24 at 0930, Until Carrie 02/12/24 at 1532, Maintenance line Start Infusion 02/12/2024 8:22 AM EDT 50 mL/hr documented in this encounter Care Teams Mathematics Teacher Relationship Specialty Start Date End Date Shiloh Leger CRNP [address] [place] [address] PCP - General Nurse Practitioner 09/24/22 documented as of this encounter
--- OUTSIDE RECORDS SUMMARY | 2024-03-24 12:05 | External Medical Summary | Summary of Care ---
Author Name Unknown Organization [facility] Address [address] [place] [address] Phone [phone] Care Team Providers Care Land Manager Name Role Phone Shiloh Leger Primary Care Provider +1- [phone] Reason for Visit * Reason Comments Outpatient Testing Encounter Details Date Type Department Care Team (Late st Contact Info) Description 03/12/2024 3:00 PM EDT Laboratory Laboratory, [facility] [address] [place] [id number] [facility] [address] [place] [address] Iron deficiency anemia, unspecified iron deficiency anemia type Allergies Active Allergy Reactions Criticality Noted Date Comments Amoxicillin 12/05/2005 Prednisone 10/01/2022 Other reaction(s): hives documented as of this encounter (statuses as of 03/12/2024) Medications Medication Sig Dispensed Refills Start Date [...] as of this encounter (statuses as of 03/12/2024) Active Problems Problem Noted Date Diagnosed Date Iron deficiency anemia 01/21/2024 Antepartum anemia complicating 024 Overview: Anemia at 28w, recommend IV iron High grade squamous intraepi thelial lesion (HGSIL), grade 3 ROGERIO, on biopsy of cervix 10/13/2023 Overview: Needs PP LEEP Maternal arrhythmia affecting , antepar blaise 09/29/2023 Overview: Hx SVT, s/p ablation in 2021. Follows with cardiology at [facility]. Reports she had an echo [...] as of this encounter (statuses as of 03/12/2024) Immunizations Name Administration Dates Next Due COVID-19, [...] money to get more. Never true 11/03/2023 [place] Depression Scale Answer Date Recorded [place] Depression Scale Total 4 02/04/2024 The thought [...] 03/12/2024 3:30 PM EDT Office Visit Gynecology/Obstetri [facility] [address] [facility] [place] [address] Karolyn Rodriguez PA-C [address] [place] [address] [place] [address] Encounter for supervision of other normal , unspecified trimester*; Antepartum anemia complicating ; Iron deficiency anemia, unspecified iron deficiency anemia type; History of cardiac radiofrequency ablation; Maternal arrhythmia affecting , antepartum; High grade squamous intraepithelial lesion (HGSIL), grade 3 ROGERIO, on biopsy of cervix; Depression complicating , antepartum; Pap smear of cervix with ASCUS, cannot exclude HGSIL; Carrier of spinal muscular atrophy 03/15/2024 9:30 AM EDT Pharmacy Pharmacy, [place] [address] [place] [address] Clinic, [place] [address] [place] [address] 03/19/2024 2:45 PM EDT Office Visit Gynecology/[facility] [address] [facility] [address] Adia Baig CRNP [address] [facility] [address] 03/26/2024 3:30 PM EDT Office Visit Gynecology/Obstetri [facility] [address] [facility] [address] Karolyn Rodriguez PA-C [address] [place] [address] Pending Results Name Type Priority Associated Diagnoses Date /Time IRON SCREEN, INCLUDING TIBC Lab Routine Iron deficiency anemia, unspecified iron deficiency anemia type 03/12/2024 3:05 PM EDT FERRITIN Lab Routine Iron deficiency anemia, unspecified iron deficiency anemia type 03/12/2024 3:05 PM EDT RETICULOCYTE PANEL Lab Routine Iron deficiency anemia, unspecified iron deficiency anemia type 03/12/2024 3:05 PM EDT VITAMIN B12 Lab Routine Iron deficiency anemia, unspecified iron deficiency anemia type 03/12/2024 3:05 PM EDT FOLIC ACID Lab Routine Iron deficiency anemia, unspecified iron deficiency anemia type 03/12/2024 3:05 PM EDT Health Maintenance Due Date Last Done Comments [...] Procedure Name Priority Date/Time Associated Diagnosis Comments DIFFERENTIAL, AUTOMATED Routine 03/12/2024 3:05 PM EDT Iron deficiency anemia, unspecified iron deficiency anemia type CBC Routine 03/12/2024 3:05 PM EDT Iron deficiency anemia, unspecified iron deficiency anemia type CBC Routine 03/12/2024 3:05 PM EDT Iron deficiency anemia, unspecified iron deficiency anemia type documented in this encounter Results * (ABNORMAL) DIFFERENTIAL, AUTOMATED (03/12/2024 3:05 PM EDT) WBC 8.61 4.00 - 10.80 K/uL 03/12/2024 3:10 PM EDT LABORATORY [place] 57-10 Neutrophils % 73.4 40.0 - 75.0 % 03/12/2024 3:10 PM EDT LAB[facility]ORY [place] 57-10 Lymphocytes % 17.1(L) 18.0 - 42.0 % 03/12/2024 3:10 PM EDT LAB[facility] [place] 57-10 Monocytes % 8.2 1.0 - 11.0 % 03/12/2024 3:10 PM EDT LAB[facility] [place] 57-10 Eosinophils % 1.2 0.0 - 6.0 % 03/12/2024 3:10 PM EDT LAB[facility]ATORY [place] 57-10 Basophils % 0.1 0.0 - 2.0 % 03/12/2024 3:10 PM EDT [facility]ORY [facility] 57-10 Absolute Neutrophils 6.32 1.80 - 7.70 K/uL 03/12/2024 3:10 PM EDT LAB[facility]ORY [facility] 57-10 Absolute Lymphocytes 1.47 1.00 - 4.80 K/ul 03/12/2024 3:10 PM EDT LAB[facility] 57-10 Absolute Monocytes 0.71 0.00 - 1.10 K/uL 03/12/2024 3:10 PM EDT LAB[facility] 57-10 Absolute Eosinophils 0.10 0.00 - 0.70 K/uL 03/12/2024 3:10 PM EDT LAB[facility]ORY [place] 57-10 Absolute Basophils 0.01 0.00 - 0.20 K/uL 03/12/2024 3:10 PM EDT LAB[facility]ATORY [place] 57-10 Blood Venous blood specimen / Unknown Venipuncture / Unknown 03/12/2024 3:05 PM EDT 03/12/2024 3:05 PM EDT Kierra Price [facility] LAB BLOOD ORDERABLES LAB[facility]ATORY [place] 57-10 [address] [place] [address] * (ABNORMAL) CBC (03/12/2024 3:05 PM EDT) [facility] WBC 8.61 4.00 - 10.80 K/uL 03/12/2024 3:10 PM EDT LAB[facility]ATORY [place] 57-10 RBC 3.64 3.85 - 5.15 M/uL 03/12/2024 3:10 PM EDT LAB[facility] [place] 57-10 HGB 10.7(L) 12.0 - 15.3 g/dL 03/12/2024 3:10 PM EDT LAB[facility]ORY [place] 57-10 HCT 32.7(L) 36.0 - 45.2 % 03/12/2024 3:10 PM EDT LAB[facility]ORY [place] 57-10 MCV 89.8 81.5 - 97.5 fL 03/12/2024 3:10 PM EDT [facility]10 MCH 29.4 27.0 - 34.0 pg 03/12/2024 3:10 PM EDT LAB[facility]ORY [facility] 57-10 MCHC 32.7 32.0 - 36.0 g/dL 03/12/2024 3:10 PM EDT LAB[facility] 57[facility]10 RDW 14.9 11.5 - 15.5 % 03/12/2024 3:10 PM EDT [facility] PLT 175 140 - 400 K/uL 03/12/2024 3:10 PM EDT [facility] MPV 11.6 6.6 - 11.1 fL 03/12/2024 3:10 PM EDT LAB[facility]ORY [facility] 57-10 Blood Venous blood specimen / Unknown Venipuncture / Unknown 03/12/2024 3:05 PM EDT 03/12/2024 3:05 PM EDT Kierra Price [facility] LAB BLOOD ORDERABLES LAB[facility]ATORY [facility] [place] 57[facility]10 [address] [place] [address] documented in this encounter Visit Diagnoses Diagnosis [...] atypical squamous cells of undetermined significance (ASC-US) Carrier of spinal muscular atrophy Iron deficiency anemia, unspecified iron deficiency anemia type documented in this encounter Care Teams Land Manager Relationship Specialty Start Date End Date Shiloh Leger CRNP [address] [place] [address] PCP - General Nurse Practitioner 09/24/22 documented as of this encounter
--- OUTSIDE RECORDS SUMMARY | 2024-03-24 12:05 | External Medical Summary ---
Author Name Unknown Address Unknown Organization [id number]:LABORATORY [facility] - [address] [place] [address] Laboratory Report Ordering Provider Test Date Status JAYLEENTAZ 03/12/2024 15:05:45 Final Observation Date Value Abnormality Reference (Units ) Status Iron 03/12/2024 15:05:45 85 33-151 (ug /dL) Final Iron-binding capacity 03/12/2024 15:05:45 413 250-425 (ug/dL) Final Transferrin Sat % 03/12/2024 15:05:45 21 15 -55 (%) Final Performing Location LABORATORY [facility] - [address] [place] [address]
--- OUTSIDE RECORDS SUMMARY | 2024-03-24 12:05 | External Medical Summary ---
Author Name Unknown Address Unknown Organization [id number]:LABORATORY [place] 57[facility]10 - [address] [place] [address] Laboratory Report Ordering Provider Test Date Status TAZ CLEMENS 03/12/2024 15:05:45 Final Observation Date Value Abnormality Reference (Units ) Status SYNC LEUKOCYTES IN BLOOD BY AUTOMATED COUNT 03/12/2024 15:05:45 8.61 4.00-10.80 (K/uL) Final Segs 03/12/2024 15:05:45 73.4 40.0-75.0 (%) Final Lymphs % 03/12/2024 15:05:45 17.1 Below low normal 18.0-42.0 (%) Final Monos 03/12/2024 15:05:45 8.2 1.0-11.0 (%) Final Eosinophils 03/12/2024 15:05:45 1.2 0.0-6.0 (%) Final Basos 03/12/2024 15:05:45 0.1 0.0-2.0 (%) Final Absolute Segs 03/12/2024 15:05:45 6.32 1.80-7.70 (K/uL) Final Lymphs, absolute 03/12/2024 15:05:45 1.47 1.00-4.80 (K/ul) Final Monos, Abs 03/12/2024 15:05:45 0.71 0.00-1.10 (K/uL) Final Eos, Abs 03/12/2024 15:05:45 0.10 0.00-0.70 (K/uL) Final Basos, Abs 03/12/2024 15:05:45 0.01 0.00-0.20 (K/uL) Final Performing Location [facility] 0 - [address] [place] [address]
--- OUTSIDE RECORDS SUMMARY | 2024-03-24 12:05 | External Medical Summary | Summary of Care ---
Author Name Unknown Organization [facility] Address [address] [place] [address] Phone [phone] Care Team Providers Care Painter Airbrush Name Role Phone Shiloh Leger Primary Care Provider +1- [phone] Reason for Visit * Reason Comments IV Therapy Infed Encounter Details Date Type Department Care Team (Latest Contact Info) Description 02/12/2024 8:00 AM EDT Hem/Onc Treatment Hematology/Oncology Treatment, [address] [address] Jacy, Chair 1 Hem Onc [address] [phone] Iron deficiency anemia, unspecified iron deficiency anemia type* Allergies Active Allergy Reactions Criticality Noted Date Comments Amoxicillin 12/05/2005 Prednisone 10/01/2022 Other reaction(s): hives documented as of this encounter (statuses as of 03/11/2024) Medications Medication Sig Dispensed Refills Start Date [...] as of this encounter (statuses as of 03/11/2024) Active Problems Problem Noted Date Diagnosed Date [...] as of this encounter (statuses as of 03/11/2024) Immunizations Name Administration Dates Next Due COVID-19, [...] money to get more. Never true 11/03/2023 [place] Depression Scale Answer Date Recorded [place] Depression Scale Total 4 02/04/2024 The thought [...] Description 03/12/2024 3:00 PM EDT Laboratory Laboratory, [facility] 132 [facility] [place] [address] [facility] [place] [address] 03/12/2024 3:30 PM EDT Office Visit Gynecology/Obstetrics [facility] [address] [place] [address] Karolyn Rodriguez PA-C [address] [place], [place] [address] [address] 03/15/2024 9:30 AM EDT Pharmacy Pharmacy, [place] [address] [place] [address] Clinic, [place] [address] [place] [address] 03/19/2024 2:45 PM EDT [facility] [address] [place] [address] Adia Baig CRNP [address] [place] [address] 03/26/2024 3:30 PM EDT Office Visit Gynecology/Obstetrics [place] [address] [place] [address] Karolyn Rodriguez PA-C [address] [place] [address] [place] [address] Scheduled Orders Name Type [...] mL/hr documented in this encounter Care Teams Painter Airbrush Relationship Specialty Start Date End Date Shiloh Leger CRNP [address] [place] [address] PCP - General Nurse Practitioner 09/24/22 documented as of this encounter
--- OUTSIDE RECORDS SUMMARY | 2024-03-24 12:05 | External Medical Summary | Summary of Care ---
Author Name Unknown Organization [facility] Address [address] [place] [place] [address] Phone [phone] Care Team Providers Care Chopped Strand Operator Name Role Phone Shiloh Leger Primary Care Provider +1- [phone] Encounter Details Date Type Department Care Team (Late st Contact Info) Description 03/04/2024 Result Scan Unspecified Department Bebeto Herrera MD [address] [place] [address] <No scans attached> Allergies Active Allergy Reactions Criticality Noted Date Comments Amoxicillin 12/05/2005 Prednisone 10/01/2022 Other reaction(s): hives documented as of this encounter (statuses as of 03/05/2024) Medications Medication Sig Dispensed Refills Start Date [...] as of this encounter (statuses as of 03/05/2024) Active Problems Problem Noted Date Diagnosed Date Iron deficiency anemia 01/21/2024 Antepartum anemia complicating 024 Overview: Anemia at 28w, recommend IV iron High grade squamous intraepi thelial lesion (HGSIL), grade 3 ROGERIO, on biopsy of cervix 10/13/2023 Overview: Needs PP LEEP Maternal arrhythmia affecting , antepar blaise 09/29/2023 Overview: Hx SVT, s/p ablation in 2021. Follows with cardiology at [facility]. Reports she had an echo ~2 [...] as of this encounter (statuses as of 03/05/2024) Immunizations Name Administration Dates Next Due COVID-19, [...] money to get more. Never true 11/03/2023 [place] Depression Scale Answer Date Recorded [place] Depression Scale Total 4 02/04/2024 The thought [...] Care Team (Late st Contact Info) Description 03/05/2024 2:45 PM EDT Office Visit Gynecology/Obstetrics [facility] 132 [facility] [place] [address] Paty Solis CNM [address] [place] [address] 03/12/2024 3:30 PM EDT Office Visit Gynecology/Obstetrics [facility] [address] [place] [address] Karolyn Rodriguez PA-C [address] [place] [address] 03/15/2024 9:30 AM EDT Pharmacy Pharmacy, [address] [place] [address] Clinic, [place] [address] [place] [address] 03/19/2024 2:45 PM EDT Office Visit Gynecology/Obstetrics [facility] [address] [place] [place] [address] Adia Baig CRNP [address] [place] [address] 03/26/2024 3:30 PM EDT Office Visit Gynecology/Obstetrics [facility] [address] [place] [address] Karolyn Rodriguez PA-C [address] [facility] [place] [address] Health Maintenance Due Date Last Done Comments [...] Results * OUTSIDE LAB RESULTS (03/04/2024) 03/04/2024 Bebeto Garcia MD LABORATORY documented in this encounter Care Teams Chopped Strand Operator Relationship Specialty Start Date End Date Shiloh Leger CRNP [address] [place] [address] PCP - General Nurse Practitioner 09/24/22 documented as of this encounter
--- OUTSIDE RECORDS SUMMARY | 2024-03-24 12:05 | External Medical Summary ---
Author Name Unknown Address Unknown Organization K01:LABORATORY [facility] [place] [place] - [address] [facility] [address] [facility] [address] Laboratory Report Ordering Provider Test Date Status SALMA MURILLO 03/12/2024 16:07:29 Final Observation Date Value Abnormality Reference (Units ) Status Bacterial vaginosis [Interpretation] in Vaginal fluid Qualitative 03/12/2024 16:07:29 Negative Negative Final Negative for Bacterial Vagin osis. Correlate results with other clinical findings. Yadira sp DNA [Presence] in Vaginal fluid by Probe 03/12/2024 16:07:29 Negative Negative Final No Yadira species group RNA detected. Correlate results with other clinical findings. Yadira glabrata RNA [Presen ce] in Vaginal fluid by CHAYITO with probe detection 03/12/2024 16:07:29 Negative Negative Final No Yadira glabrata RNA dete cted. Correlate results with other clinical findings. Trichomonas vaginalis DNA [P resence] in Vaginal fluid by Probe 03/12/2024 16:07:29 Negative Negative Final No Trichomonas vaginalis RNA detected. Performing Location LAB[facility]ATORY [facility] - [address] [place] [address]
--- OUTSIDE RECORDS SUMMARY | 2024-03-24 12:05 | External Medical Summary ---
Author Name Unknown Address Unknown Organization K01:LABORATORY [facility] - [address] [place] [address] Laboratory Report Ordering Provider Test Date Status TAZ CLEMENS 03/12/2024 15:05:45 Final Observation Date Value Abnormality Reference (Units ) Status Folic Acid 03/12/2024 15:05:45 18.2 >4.5 (ng/ mL) Final Performing Location LABORATORY [facility] - [address] [place] [address]
--- OUTSIDE RECORDS SUMMARY | 2024-03-24 12:05 | External Medical Summary ---
Author Name Unknown Address Unknown Organization K01:LABORATORY [facility] [place] [address] [facility] [address] Laboratory Report Ordering Provider Test Date Status TAZ CLEMENS 03/12/2024 15:05:45 Final Observation Date Value Abnormality Reference (Units ) Status Retic, % (auto) 03/12/2024 15:05:45 2.91 Above high normal 0.80-1.90 (%) Final Reticulocytes, Absolute 03/12/2024 15:05:45 106.8 Above high normal 31.3-100.1 (K/uL) Final Reticulocyte fraction, immature 03/12/2024 15:05:45 15.2 2.5-20.6 (%) Final Reticulocyte HGB 03/12/2024 15:05:45 33.3 29.7-37.4 (pg) Final Performing Location LABORATORY [facility] - [address] [place] [id number]
--- OUTSIDE RECORDS SUMMARY | 2024-03-24 12:05 | External Medical Summary ---
Author Name Unknown Address Unknown Organization K01:LABORATORY [facility] - [address] [place] [address] Laboratory Report Ordering Provider Test Date Status TAZ CLEMENS 03/12/2024 15:05:45 Final Observation Date Value Abnormality Reference (Units ) Status Vitamin B12 03/12/2024 15:05:45 295 783-2403 (pg/mL) Final Performing Location LABORATORY [facility] - [address] [place] [address]
--- OUTSIDE RECORDS SUMMARY | 2024-03-24 12:05 | External Medical Summary ---
Author Name Unknown Address Unknown Organization [id number]:[facility] [place] [address] [place] [address] Laboratory Report Ordering Provider Test Date Status TAZ CLEMENS 03/12/2024 15:05:45 Final Observation Date Value Abnormality Reference (Units ) Status WBC, Total 03/12/2024 15:05:45 8.61 4.00-10.8 0 (K/uL) Final RBC 03/12/2024 15:05:45 3.64 3.85-5.15 (M/uL) Final Hemoglobin 03/12/2024 15:05:45 10.7 Below low normal 12 .0-15.3 (g/dL) Final HCT 03/12/2024 15:05:45 32.7 Below low normal 36. 0-45.2 (%) Final MCV 03/12/2024 15:05:45 89.8 81.5-97.5 (fL) Final MCH 03/12/2024 15:05:45 29.4 27.0-34.0 (pg) Final MCHC 03/12/2024 15:05:45 32.7 32.0-36.0 (g/dL) Final RDW 03/12/2024 15:05:45 14.9 11.5-15.5 (%) Final Platelets 03/12/2024 15:05:45 175 140-400 (K /uL) Final MPV 03/12/2024 15:05:45 11.6 6.6-11.1 ( fL) Final Performing Location [facility] [place] [address] [place] [address]
--- OUTSIDE RECORDS SUMMARY | 2024-03-24 12:06 | External Medical Summary ---
Author Name Unknown Address Unknown Organization [id number]:[facility] [place] - [address] [place] [address] Laboratory Report Ordering Provider Test Date Status CANDEJETHRO 03/04/2024 15:14:13 Final Observation Date Value Abnormality Reference (Units) Status Bacteria identified in Specimen by Culture 03/04/2024 15:14:13 No significant growth Final Test: Culture, Urine, Quanti tative
Specimen Source: Urine, Clean Catch
Specimen Type: Urine
Specimen Date: 03/04/2024 1514
Result Date: 03/05/2024 1622
Result Status: Final result
Resulting Lab: [facility] [place]
[address]
[place] [facility]

CULTURE

No significant growth

null Performing Location LAB[facility]ATORY [facility] [place] - [address] [place] [id number]
--- OUTSIDE RECORDS SUMMARY | 2024-03-24 12:06 | External Medical Summary | Summary of Care ---
Author Name Unknown Organization [facility] Address [address] [facility] [place] [address] Phone [phone] Care Team Providers Care Swatch Cutter Name Role Phone Shiloh Leger Primary Care Provider +1- [phone] Reason for Visit * Reason Comments Return Visit Encounter Details Date Type Department Care Team (Latest Contact Info) Description 03/04/2024 1:30 PM EDT Office Visit Gynecology/Obstetri sharyn Han [address] [place] [address] Gayle Dexter PA-C [address] [place] [address] Encounter for supervision of other normal , [...] as of this encounter (statuses as of 03/04/2024) Medications Medication Sig Dispensed Refills Start Date [...] as of this encounter (statuses as of 03/04/2024) Active Problems Problem Noted Date Diagnosed Date Iron deficiency anemia 01/21/2024 Antepartum anemia complicating 024 Overview: Anemia at 28w, recommend IV iron High grade squamous intraepi thelial lesion (HGSIL), grade 3 ROGERIO, on biopsy of cervix 10/13/2023 Overview: Needs PP LEEP Maternal arrhythmia affecting , antepar blaise 09/29/2023 Overview: Hx SVT, s/p ablation in 2021. Follows with cardiology at [facility]. Reports she had an echo [...] as of this encounter (statuses as of 03/04/2024) Immunizations Name Administration Dates Next Due COVID-19, [...] money to get more. Never true 11/03/2023 Westlake Depression Scale Answer Date Recorded Westlake Depression Scale Total 4 02/04/2024 The thought [...] Sign Reading Time Taken Comments Blood Pressure 112/62 03/04/2024 1:44 PM EDT Pulse - - Temperature 37.3 C (99.1 F) 03/04/2024 1:44 PM ED T Respiratory Rate - - Oxygen Saturation - - Inhaled Oxygen Concentration - - Weight 82.1 kg (181 lb) 03/04/2024 1:44 PM EDT Height 167.6 cm (5' 6") 03/04/2024 1:44 PM EDT Body Mass Index 29.21 03/04/2024 1:44 PM EDT documented in this encounter Progress Notes * Gayle Dexter PA-C - 03/04/2024 1:47 PM EDT 36w4d Patient here for acute visit. Called in early today with nausea and vomiting starting yesterday. Having left sided low back pain wrapping around to front. No other sick contacts in home. BM normal. Denies diarrhea or constipation. Urinating normally. Denies dysuria. Denies LOF, VB. Doing kick countand getting 10 movements easily, but feels movements are slightly diminished. Pt has taken temperature but feels hot. Was advised to take Tylenol. She did around 10:30 AM, has not helped. She being trying to increase fluid intake and doesn't feel helping. PE: BP 112/62 | Temp 37.3 C (99.1 F) | Ht 1.676 m (5' 6") | Wt 82.1 kg (181 lb) | LMP 06/08/2023 | BMI 29.21 kg/m | BSA 1.96 m Appears ill, pt vomiting in room No CVA tenderness UA with small leuks, otherwise negative ASSESSMENT assessment with Non-stress Test completed on 03/04/2024 at 36.4 weeks gestation for indication of decreased movement heart baseline: 145 bpm Variability: Moderate Decelerations: present, variables Accelerations: present Contractions: Present x 1 lasting less than 1 minutes NST start time: 13:52 NST stop time: 14:27 NST strip reviewed, interpreted, and approved by OB provider, Gayle Dexter PA-C and Dr. Dan. NST strip stored in clinic storage file call or contact centre team leader provider Dr. Yeager contacted. Reviewed case with her. Patient to present to L&D for further monitoring and likely IV fluids with nausea meds. Patient agreeable to plan. L&D notified of patient's arrival. Pt to present directly. Gayle Dexter PA-C * oZ Velez LPN - 03/04/2024 1:44 PM EDT Pt is currently 36w4d with an Estimated Date of Delivery: 03/28/24 - Pain started left sided and now progressed to across whole lower back. +n/v and headaches. Took Tylenol this am, with some relief. documented in this encounter Plan of Treatment Upcoming Encounters Date Type Department Care Team (Late st Contact Info) Description 03/05/2024 2:45 PM EDT Office Visit [facility] [address] [facility] [place] [address] Paty Solis CNM [address] [place] [address] 03/12/2024 3:30 PM EDT Office Visit [facility]necology[facility] [address] [facility] [place] [address] Karolyn Rodriguez PA-C [address] [facility] [place] [id number] 03/15/2024 9:30 AM EDT Pharmacy Pharmacy, [place] [address], [place] [id number] Clinic, [place] [address] [place] [address] 03/19/2024 2:45 PM EDT Office Visit Gynecology/Obstetrics [facility] [address] [place] [address] Adia Baig CRNP [address] [place] [address] 03/26/2024 3:30 PM EDT Office Visit Gynecology/Obstetrics [facility] [address] [place] [address] Karolyn Rodriguez PA-C [address] [place] [address] Pending Results Name Type Priority Associated Diagnoses Date /Time CULTURE, URINE, QUANTITATIVE Lab Routine Encounter for supervision of other normal , unspecified trimester 03/04/2024 3:14 PM EDT Health Maintenance Due Date Last [...] antepartum documented in this encounter Care Teams Swatch Cutter Relationship Specialty Start Date End Date Shiloh Leger CRNP [address] [facility] [place] [address] PCP - General Nurse Practitioner 09/24/22 documented as of this encounter
--- OUTSIDE RECORDS SUMMARY | 2024-03-24 12:06 | External Medical Summary | Summary of Care ---
Author Name Unknown Organization [facility] Address [address] [facility] [address] Phone [phone] Care Team Providers Care Assistant Elementary Teacher Name Role Phone Shiloh Leger Primary Care Provider +1- [phone] Encounter Details Date Type Department Care Team (Late st Contact Info) Description 03/04/2024 Orders Only Gynecology/Obstetrics [facility] [address] [place], [place] [phone] Gayle Dexter PA-C [address] [place] [address] Allergies Active Allergy Reactions Criticality Noted Date [...] ablation in 2021. Follows with cardiology at [facility]. Reports she had an echo ~2 years [...] money to get more. Never true 11/03/2023 Jackson Depression Scale Answer Date Recorded Jackson Depression Scale Total 4 02/04/2024 The thought [...] 03/05/2024 2:45 PM EDT Office Visit Gynecology/Obstetrics [facility] [address] [facility] [place] [address] Paty Solis CNM [address] [place] [phone] 03/12/2024 3:30 PM EDT Office Visit Gynecology/Obstetrics [facility] [address] [place] [address] Karolyn Rodriguez PA-C [address] [place] [id number] 03/15/2024 9:30 AM EDT Pharmacy Pharmacy, [place] [address] [place] [address] Clinic, [facility] [address] [place] [address] 03/19/2024 2:45 PM EDT Office Visit Gynecology/Obstetrics [facility] [address] [facility] [place] [address] Adia Baig CRNP [address] [facility] [place] [address] 03/26/2024 3:30 PM EDT Office Visit Gynecology/Obstetrics [facility] [address] [facility] [place] [address] Karolyn Rodriguez PA-C [address] [place], [place] [phone] Health Maintenance Due Date Last Done Comments [...] Procedure Name Priority Date/Time Associated Diagnosis Comments CHEMISTRY-OUTSIDE Routine 03/04/2024 documented in this encounter Results * (ABNORMAL) CHEMISTRY-OUTSIDE (03/04/2024) Not all results display below - see scan for full detail SEE SCAN: CMP, CBCD, UA RFLX MICRO OUTSIDE LAB (SEE SCANNED REPORT) CREATININE-OUTSID E LAB 0.44(L) 0.6 - 1.2 MG/DL OUTSIDE LAB (SEE SCANNED REPORT) EGFR-OUTSIDE LAB 133.6 ML/MIN/1. 73M2 OUTSIDE LAB (SEE SCANNED REPORT) POTASSIUM-OUTSIDE LAB 3.7 3.5 - 5.1 MMOL/L OUTSIDE LAB (SEE SCANNED REPORT) GLUCOSE-OUTSIDE LAB 120(H) 70 - 99 MG/DL OUTSIDE LAB (SEE SCANNED REPORT) HOURS FASTING OUTSID E LAB (SEE SCANNED REPORT) TRIGLYCERIDES-OUT SIDE LAB OUTSIDE LAB (SEE SCANNED REPORT) CHOLESTEROL-OUTSI DE LAB OUTSIDE LAB (SEE SCANNED REPORT) HDL-OUTSIDE LAB OUTS ANITHA LAB (SEE SCANNED REPORT) CHOL/HDL RATIO-OUTSIDE LAB OUTSIDE LA B (SEE SCANNED REPORT) LDL (CALCULATED)-OUTS ANITHA LAB OUTSIDE LAB (SEE SCANNED REPORT) LDL (DIRECT MEASURE)-OUTSIDE LAB OUTSIDE LAB (SEE SCANNED REPORT) HEMOGLOBIN, C9M-FXEAYIR LAB OUTSIDE LAB (SEE SCANNED REPORT) PHOSPHORUS-OUTSID E LAB OUTSIDE LAB (SEE SCANNED REPORT) PTH-OUTSIDE LAB OUTS ANITHA LAB (SEE SCANNED REPORT) MICROALBUMIN RATIO-OUTSIDE LAB OUTSIDE LA B (SEE SCANNED REPORT) PROTEIN, UA-OUTSIDE LAB OUTSIDE LAB (SEE SCANNED REPORT) HGB 10.7(L) 12.0 - 16.0 G/DL OUTSIDE LAB (SEE SCANNED REPORT) 03/04/2024 Bebeto Garcia MD LABORATORY OUTSIDE LAB (SEE SCANNED REPORT) documented in this encounter Care Teams Assistant Elementary Teacher Relationship Specialty Start Date End Date Shiloh Leger CRNP [address] [place] [address] PCP - General Nurse Practitioner 09/24/22 documented as of this encounter
[2024-03-25 00:12] VITALS: O2SAT 98
[2024-03-25 06:49] LABS: Hematocrit (blood only) 29.3 % (37.0-47.0); Hemoglobin 9.9 g/dl (12.0-16.0); Mean Corpuscular Hemoglobin 29.2 pg (25.0-34.0); Mean Corpuscular Hgb Conc 33.8 g/dL (32.0-36.0); Mean Corpuscular Volume 86.4 fL (80.0-100.0); Mean Platelet Volume 11.9 fL (9.4-12.4); Platelet Count 188 K/uL (130-400); RDW Coefficient of Variation 14.6 % (11.5-14.5); RDW Standard Deviation 45.5 fL (36.4-46.3); Red Blood Count 3.39 M/uL (4.20-5.40); White Blood Count 12.74 K/ul (4.8-10.8)
[2024-03-25 08:06] VITALS: BP 102/66; PULSE 79; RESP 20; TEMP 98.1
--- NOTE | 2024-03-25 09:08 | Obstetrical Progress Note ---
Date of Service March 25, 2024 Assessment & Plan Admission and Anticipated Discharge Date Admission Date: March 24, 2024 OB Progress Note abdomen soft and non tender no calf tenderness ambulating well vaginal bleeding scant hgb 9.9 Results & Data Vital Signs (Past 12 Hours) Vital Signs Temp Pulse Resp BP Pulse Ox O2 Del Method 03/25/24 07:40 36.7 C 79 20 102/66 98 Room Air 03/25/24 04:30 36.6 C 92 H 16 97/66 L 98 Room Air 03/24/24 23:53 36.8 C 89 18 104/68 98 Room Air
[2024-03-25] MEDS ORDERED: bisacodyL 5 MG TABEC PO SCH (20:00)
== END 2024-03-25 11:00 | disposition home or self-care (01) | DRG 807 ==
LOC: OPB 02:46 → 4S1 02:50 → 4E2 09:15